=== PATIENT | male | born 1935 | race Caucasian/White ===

== ENCOUNTER 2016-09-21 10:36 | Outpatient (CLI) | payer MEDICARE, OTHER | END 2016-09-21 10:37 | disposition home or self-care (01) | DX: I10 Essential (primary) hypertension (principal); E78.5 Hyperlipidemia, unspecified ==

== ENCOUNTER 2016-09-25 08:00 | Outpatient (CLI) | payer MEDICARE, OTHER | END 2016-09-25 08:01 | disposition home or self-care (01) | DX: D75.89 Other specified diseases of blood and blood-forming organs (principal); R27.0 Ataxia, unspecified ==

== ENCOUNTER 2017-11-29 09:40 | Outpatient (CLI) | payer MEDICARE, OTHER ==
[2017-11-29 13:15] LABS: BILIRUBIN,URINE NEGATIVE (NEGATIVE); GLUCOSE, URINE (UA) NEGATIVE (NEGATIVE); KETONES,URINE (UA) NEGATIVE (NEGATIVE); LEUKOCYTE ESTERASE, URINE NEGATIVE (NEGATIVE); NITRITE,URINE POSITIVE (NEGATIVE); OCCULT BLOOD,URINE LARGE (NEGATIVE); PH,URINE 5.5 PH (5.0-7.5); PROTEIN,URINE 30 mg/dL (NEGATIVE); UROBILINOGEN,URINE 0.2 (NORMAL) E.U./dL (NORMAL)
[2017-11-29 13:38] LABS: CLARITY,URINE HAZY (CLEAR)
[2017-11-29 13:39] LABS: BACTERIA,URINE Many /HPF (None Seen); RBC,URINE TNTC /HPF (0-5); SQUAMOUS EPITHELIAL CELL,UR RARE Squamous (<= Few)
== END 2017-11-29 09:41 | disposition home or self-care (01) ==
LOC: LAB.R 09:40
PROVIDERS: ATTEND Family Medicine
DX: R10.32 Left lower quadrant pain (principal)
CPT/HCPCS: 81001; 87086

== ENCOUNTER 2017-11-29 11:08 | Outpatient (CLI) | payer MEDICARE, OTHER ==
[2017-11-29 11:36] LABS: BASOPHILS # (AUTO) 0.1 10^3/uL (0.0-0.1); BASOPHILS % (AUTO) 0.5 %; EOSINOPHILS % (AUTO) 0.2 %; HGB - HEMOGLOBIN 16.9 g/dL (14.0-18.0); LYMPHOCYTES # (AUTO) 1.1 10^3/uL (1.5-3.5); LYMPHOCYTES % (AUTO) 7.7 %; MEAN CORPUSCULAR HEMOGLOBIN 33.9 pg (27.0-31.0); MEAN CORPUSCULAR HGB CONC 34.3 g/dL (32.0-36.0); MEAN CORPUSCULAR VOLUME 98.7 fL (80.0-94.0); MEAN PLATELET VOLUME 7.4 fL (7.4-11.4); MONOCYTES # (AUTO) 0.7 10^3/uL (0.0-1.0); MONOCYTES % (AUTO) 4.6 %; NEUTROPHILS # (AUTO) 12.6 10^3/uL (1.5-6.6); PLT - PLATELET COUNT 147 10^3/uL (130-450); RED BLOOD COUNT 4.97 10^6/uL (4.70-6.10); RED CELL DISTRIBUTION WIDTH 13.9 % (12.0-15.0); WHITE BLOOD COUNT 14.5 x10^3/uL (4.8-10.8)
[2017-11-29 11:47] LABS: ALBUMIN 4.6 g/dL (3.2-5.5); ALBUMIN/GLOBULIN RATIO 1.4 (1.0-2.2); BILIRUBIN,TOTAL 1.3 mg/dL (0.2-1.0); CALCIUM 10.8 mg/dL (8.5-10.3); CREATININE 1.7 mg/dL (0.6-1.2); TOTAL PROTEIN 7.8 g/dL (6.7-8.2)
[2017-11-29] MEDS ORDERED: IOPAMIDOL-300 100 ML VIAL ONE (13:12)
[2017-11-29] MEDS ORDERED: IOPAMIDOL-300 100 ML VIAL IVP ONE (14:27)
--- NOTE | 2017-11-29 15:20 | CT Report ---
CT IVP: 11/29/2017 CLINICAL INDICATION: Left-sided pain, hematuria. TECHNIQUE: Axial CT images of the abdomen and pelvis were obtained prior to and following 50 mL of Isovue 300 intravenously, using split bolus technique. No previous CT is available for comparison. FINDINGS: Limited evaluation of the lung bases demonstrates atelectasis. ABDOMEN: The liver demonstrates diffuse decrease in attenuation, compatible with fatty infiltration. Multiple splenic granulomas are incidentally noted. Bilateral cortical cysts are present, left greater than right, and there is left perinephric stranding. An 1 mm calculus is noted in the right renal collecting system. Following administration of contrast, there is symmetric uptake and excretion from the kidneys. No hydroureter is present. The pancreas and adrenal glands appear unremarkable. The gallbladder is not dilated. No bowel dilatation, free gas, or free fluid is present. No abdominal adenopathy is seen. PELVIS: There is a 3 mm calculus in the urinary bladder. No pelvic adenopathy or free fluid is present. The appendix is seen in the right lower quadrant, and is normal in caliber. Osseous structures demonstrate degenerative changes IMPRESSION: A 3 MM CALCULUS IN THE URINARY BLADDER, WITH LEFT RENAL PERINEPHRIC STRANDING, COMPATIBLE WITH RECENT PASSAGE OF A LEFT RENAL CALCULUS. NO SOLID RENAL OR COLLECTING SYSTEM MASS IS IDENTIFIED. In accordance with CT protocol optimization, one or more of the following dose reduction techniques were utilized for this exam: automated exposure control, adjustment of mA and/or KV based on patient size, or use of iterative reconstructive technique. TD: 11/29/2017 15:20 MTDD
== END 2017-11-29 11:09 | disposition home or self-care (01) ==
LOC: LAB 11:08 → DI 11:09
PROVIDERS: ATTEND Family Medicine
DX: R10.32 Left lower quadrant pain (principal); R31.9 Hematuria, unspecified; N21.0 Calculus in bladder
CPT/HCPCS: 36415; 74178; 80053; 81001; 85025; 87086; Q9967

== ENCOUNTER 2017-12-03 20:21 | Outpatient (CLI) | payer MEDICARE, OTHER ==
[2017-12-03 19:02] LABS: HGB - HEMOGLOBIN 15.3 g/dL (14.0-18.0); LYMPHOCYTES % (AUTO) 19.1 %; MEAN CORPUSCULAR HEMOGLOBIN 33.6 pg (27.0-31.0); MEAN CORPUSCULAR HGB CONC 33.6 g/dL (32.0-36.0); MEAN CORPUSCULAR VOLUME 100.1 fL (80.0-94.0); MEAN PLATELET VOLUME 8.6 fL (7.4-11.4); NEUTROPHILS % (AUTO) 69.9 %; PLT - PLATELET COUNT 141 10^3/uL (130-450); RED BLOOD COUNT 4.54 10^6/uL (4.70-6.10); RED CELL DISTRIBUTION WIDTH 13.8 % (12.0-15.0); WHITE BLOOD COUNT 10.1 x10^3/uL (4.8-10.8)
[2017-12-03 19:25] LABS: HB2 TOTAL 16.8 g/dL; HEMOGLOBIN A1C 0.96 g/dL; HEMOGLOBIN A1C % 7.4 % (4.6-6.2)
[2017-12-03 19:26] LABS: ALBUMIN/GLOBULIN RATIO 1.2 (1.0-2.2); BILIRUBIN,TOTAL 0.9 mg/dL (0.2-1.0); CALCIUM 10.8 mg/dL (8.5-10.3); CREATININE 1.9 mg/dL (0.6-1.2); TOTAL PROTEIN 7.4 g/dL (6.7-8.2)
[2017-12-03 19:51] LABS: ABNORMAL LYMPHS % (MANUAL) 0 %
[2017-12-03 20:47] LABS: BAND NEUTROPHILS % (MANUAL) 3 %; DIFFERENTIAL COMMENT MANUAL DIFFERENTIAL; EOSINOPHILS # (MANUAL) 0.2 10^3/uL (0-0.7); LYMPHOCYTES # (MANUAL) 1.8 10^3/uL (1.5-3.5); LYMPHOCYTES % (MANUAL) 17 %; MONOCYTES # (MANUAL) 0.4 10^3/uL (0.0-1.0); NEUTROPHILS # (MANUAL) 7.7 10^3/uL (1.5-6.6); NEUTROPHILS % (MANUAL) 73 %; PLATELET ESTIMATE, MANUAL NORMAL (130-450,000) (NORMAL); PLATELET MORPHOLOGY NORMAL APPEARANCE (NORMAL); RBC MORPHOLOGY (MULTIPLE) NORMAL APPEARANCE (NORMAL)
== END 2017-12-03 20:22 | disposition home or self-care (01) ==
LOC: LAB.WCP 20:21
PROVIDERS: ATTEND Family Medicine
DX: D72.829 Elevated white blood cell count, unspecified (principal); R73.9 Hyperglycemia, unspecified; R94.5 Abnormal results of liver function studies
CPT/HCPCS: 36415; 80053; 83036; 85025

== ENCOUNTER 2018-08-21 07:50 | Outpatient (CLI) | payer MEDICARE ==
[2018-08-21 13:23] LABS: BASOPHILS # (AUTO) 0.1 10^3/uL (0.0-0.1); BASOPHILS % (AUTO) 0.7 %; EOSINOPHILS # (AUTO) 1.2 10^3/uL (0.0-0.7); EOSINOPHILS % (AUTO) 11.7 %; LYMPHOCYTES # (AUTO) 2.8 10^3/uL (1.5-3.5); LYMPHOCYTES % (AUTO) 27.2 %; MEAN CORPUSCULAR HGB CONC 35.6 g/dL (32.0-36.0); MEAN CORPUSCULAR VOLUME 98.2 fL (80.0-94.0); MEAN PLATELET VOLUME 8.4 fL (7.4-11.4); MONOCYTES # (AUTO) 0.6 10^3/uL (0.0-1.0); MONOCYTES % (AUTO) 5.6 %; NEUTROPHILS # (AUTO) 5.6 10^3/uL (1.5-6.6); NEUTROPHILS % (AUTO) 54.8 %; PLT - PLATELET COUNT 146 10^3/uL (130-450); RED BLOOD COUNT 4.57 10^6/uL (4.70-6.10); RED CELL DISTRIBUTION WIDTH 13.3 % (12.0-15.0); WHITE BLOOD COUNT 10.1 x10^3/uL (4.8-10.8)
[2018-08-21 13:41] LABS: ALBUMIN 4.2 g/dL (3.2-5.5); ALBUMIN/GLOBULIN RATIO 1.3 (1.0-2.2); ALKALINE PHOSPHATASE 89 IU/L (42-121); ALT ALANINE AMINOTRANSFERASE 88 IU/L (10-60); AST ASPARTATE AMINOTRANSFERASE 64 IU/L (10-42); BILIRUBIN,TOTAL 1.4 mg/dL (0.2-1.0); BUN - BLOOD UREA NITROGEN 24 mg/dL (6-20); CALCIUM 10.7 mg/dL (8.5-10.3); CARBON DIOXIDE - CO2 25 mmol/L (21-32); CHLORIDE 98 mmol/L (101-111); CHOL/HDL RATIO 5.3 (<5.0); CHOLESTEROL 144 mg/dL; CREATININE 1.5 mg/dL (0.6-1.2); GFR - MDRD 45 (>89); GLUCOSE 331 mg/dL (70-100); HDL CHOLESTEROL 27 mg/dL; SODIUM 133 mmol/L (135-145); TOTAL PROTEIN 7.4 g/dL (6.7-8.2)
[2018-08-21 13:49] LABS: HEMOGLOBIN A1C 1.55 g/dL; HEMOGLOBIN A1C % 10.5 % (4.6-6.2)
[2018-08-21 14:02] LABS: LDL CHOLESTEROL,DIRECT 68 mg/dL; LDLD/HDL RATIO 2.5 (<3.6)
== END 2018-08-21 23:59 ==
LOC: LAB.WCP 07:50
PROVIDERS: ATTEND Family Medicine
DX: R73.03 Prediabetes (principal); D75.89 Other specified diseases of blood and blood-forming organs; E78.5 Hyperlipidemia, unspecified; I10 Essential (primary) hypertension
CPT/HCPCS: 36415; 80053; 80061; 82043; 83036; 83721; 84443; 84550; 85025

== ENCOUNTER 2018-11-07 12:00 | Outpatient (CLI) | payer MEDICARE, OTHER ==
[2018-11-07 19:18] LABS: ALBUMIN 4.3 g/dL (3.2-5.5); ALBUMIN/GLOBULIN RATIO 1.3 (1.0-2.2); CALCIUM 10.4 mg/dL (8.5-10.3); CREATININE 1.3 mg/dL (0.6-1.2); TOTAL PROTEIN 7.5 g/dL (6.7-8.2)
[2018-11-07 19:51] LABS: HB2 TOTAL 16.9 g/dL; HEMOGLOBIN A1C 0.84 g/dL; HEMOGLOBIN A1C % 6.7 % (4.6-6.2)
== END 2018-11-07 12:01 | disposition home or self-care (01) ==
LOC: LAB.WCP 12:00
PROVIDERS: ATTEND Family Medicine
DX: E11.9 Type 2 diabetes mellitus without complications (principal)
CPT/HCPCS: 36415; 80053; 83036

== ENCOUNTER 2019-08-05 08:00 | Outpatient (CLI) | payer MEDICARE, OTHER ==
[2019-08-05 13:04] LABS: BASOPHILS % (AUTO) 0.5 %; EOSINOPHILS # (AUTO) 0.2 10^3/uL (0.0-0.7); EOSINOPHILS % (AUTO) 3.1 %; LYMPHOCYTES # (AUTO) 2.4 10^3/uL (1.5-3.5); LYMPHOCYTES % (AUTO) 32.8 %; MEAN CORPUSCULAR HEMOGLOBIN 32.9 pg (27.0-31.0); MEAN CORPUSCULAR HGB CONC 33.2 g/dL (32.0-36.0); MONOCYTES # (AUTO) 0.5 10^3/uL (0.0-1.0); MONOCYTES % (AUTO) 6.8 %; NEUTROPHILS # (AUTO) 4.1 10^3/uL (1.5-6.6); NEUTROPHILS % (AUTO) 55.6 %; PLT - PLATELET COUNT 144 10^3/uL (130-450); RED BLOOD COUNT 4.87 10^6/uL (4.70-6.10); RED CELL DISTRIBUTION WIDTH 13.7 % (12.0-15.0); WHITE BLOOD COUNT 7.3 x10^3/uL (4.8-10.8)
[2019-08-05 14:02] LABS: ALBUMIN 4.4 g/dL (3.2-5.5); ALBUMIN/GLOBULIN RATIO 1.4 (1.0-2.2); ALKALINE PHOSPHATASE 45 IU/L (42-121); ALT ALANINE AMINOTRANSFERASE 64 IU/L (10-60); AST ASPARTATE AMINOTRANSFERASE 36 IU/L (10-42); BILIRUBIN,TOTAL 0.9 mg/dL (0.2-1.0); BUN - BLOOD UREA NITROGEN 22 mg/dL (6-20); CALCIUM 10.1 mg/dL (8.5-10.3); CARBON DIOXIDE - CO2 28 mmol/L (21-32); CHLORIDE 103 mmol/L (101-111); CHOL/HDL RATIO 5.4 (<5.0); CHOLESTEROL 161 mg/dL; CREATININE 1.4 mg/dL (0.6-1.2); GFR - MDRD 49 (>89); GLUCOSE 182 mg/dL (70-100); HDL CHOLESTEROL 30 mg/dL; LDL CHOLESTEROL,CALCULATED 54 mg/dL; LDL/HDL RATIO 1.8 (<3.6); SODIUM 140 mmol/L (135-145); TOTAL PROTEIN 7.6 g/dL (6.7-8.2); VLDL CHOLESTEROL 77 mg/dL
[2019-08-05 14:35] LABS: HB2 TOTAL 16.5 g/dL; HEMOGLOBIN A1C 0.85 g/dL; HEMOGLOBIN A1C % 6.9 % (4.6-6.2)
[2019-08-05 14:54] LABS: FREE T4 (FREE THYROXINE) 1.05 ng/dL (0.58-1.64)
[2019-08-05 19:01] LABS: CREATININE,URINE 138.2 mg/dL; MICROALBUM/CREATININE RATIO,UR 3.6 ug/mg (<30.0); MICROALBUMIN,URINE 0.5 mg/dL (0-300.0)
== END 2019-08-05 23:59 | disposition home or self-care (01) ==
LOC: LAB.WCP 08:00
PROVIDERS: ATTEND Family Medicine
DX: E11.65 Type 2 diabetes mellitus with hyperglycemia (principal); R94.5 Abnormal results of liver function studies; D72.829 Elevated white blood cell count, unspecified; I10 Essential (primary) hypertension; E78.5 Hyperlipidemia, unspecified; D64.9 Anemia, unspecified; R11.2 Nausea with vomiting, unspecified
CPT/HCPCS: 36415; 80053; 80061; 82043; 82570; 83036; 83721; 84439; 84443; 85025

== ENCOUNTER 2019-11-20 07:57 | Outpatient (CLI) | payer MEDICARE, OTHER ==
[2019-11-20 12:23] LABS: BASOPHILS # (AUTO) 0.1 10^3/uL (0.0-0.1); BASOPHILS % (AUTO) 0.8 %; EOSINOPHILS # (AUTO) 0.2 10^3/uL (0.0-0.7); EOSINOPHILS % (AUTO) 3.5 %; HGB - HEMOGLOBIN 16.5 g/dL (14.0-18.0); LYMPHOCYTES # (AUTO) 1.9 10^3/uL (1.5-3.5); LYMPHOCYTES % (AUTO) 29.7 %; MEAN CORPUSCULAR HEMOGLOBIN 34.1 pg (27.0-31.0); MEAN CORPUSCULAR HGB CONC 34.4 g/dL (32.0-36.0); MONOCYTES # (AUTO) 0.4 10^3/uL (0.0-1.0); MONOCYTES % (AUTO) 6.6 %; NEUTROPHILS # (AUTO) 3.7 10^3/uL (1.5-6.6); NEUTROPHILS % (AUTO) 58.5 %; PLT - PLATELET COUNT 144 10^3/uL (130-450); RED BLOOD COUNT 4.84 10^6/uL (4.70-6.10); RED CELL DISTRIBUTION WIDTH 13.5 % (12.0-15.0); WHITE BLOOD COUNT 6.4 x10^3/uL (4.8-10.8)
[2019-11-20 12:56] LABS: ALBUMIN 4.2 g/dL (3.2-5.5); ALBUMIN/GLOBULIN RATIO 1.3 (1.0-2.2); CALCIUM 10.2 mg/dL (8.5-10.3); CREATININE 1.4 mg/dL (0.6-1.2); TOTAL PROTEIN 7.4 g/dL (6.7-8.2)
[2019-11-20 13:18] LABS: HB2 TOTAL 16.9 g/dL; HEMOGLOBIN A1C 0.84 g/dL; HEMOGLOBIN A1C % 6.7 % (4.6-6.2)
== END 2019-11-20 23:59 | disposition home or self-care (01) ==
LOC: LAB.WCP 07:57
PROVIDERS: ATTEND Family Medicine
DX: E11.9 Type 2 diabetes mellitus without complications (principal); R94.5 Abnormal results of liver function studies; D72.829 Elevated white blood cell count, unspecified
CPT/HCPCS: 36415; 80053; 83036; 84443; 85025

== ENCOUNTER 2019-11-24 09:08 | Outpatient (CLI) | payer MEDICARE, OTHER ==
[2019-11-25 10:35] LABS: HEPATITIS B SURFACE ANTIGEN NON-REACTIVE (NON-REACTIVE); HEPATITIS C ANTIBODY NON-REACTIVE (NON-REACTIVE)
== END 2019-11-24 23:59 | disposition home or self-care (01) ==
LOC: LAB.WCP 09:08
PROVIDERS: ATTEND Family Medicine
DX: R74.8 Abnormal levels of other serum enzymes (principal)
CPT/HCPCS: 36415; 86708; 86803; 87340

== ENCOUNTER 2020-03-25 09:50 | Outpatient (CLI) | payer MEDICARE, OTHER ==
[2020-03-25 11:59] LABS: ALBUMIN 4.3 g/dL (3.2-5.5); ALBUMIN/GLOBULIN RATIO 1.4 (1.0-2.2); BILIRUBIN,TOTAL 1.2 mg/dL (0.2-1.0); CALCIUM 10.5 mg/dL (8.5-10.3); CREATININE 1.5 mg/dL (0.6-1.2); TOTAL PROTEIN 7.4 g/dL (6.7-8.2)
[2020-03-25 12:06] LABS: CREATININE,URINE 178.8 mg/dL; MICROALBUM/CREATININE RATIO,UR 3.4 ug/mg (<30.0); MICROALBUMIN,URINE 0.6 mg/dL (0-300.0)
[2020-03-25 12:14] LABS: HEMOGLOBIN A1C 0.81 g/dL; HEMOGLOBIN A1C % 6.8 % (4.6-6.2)
== END 2020-03-25 23:59 | disposition home or self-care (01) ==
LOC: LAB.WCP 09:50
PROVIDERS: ATTEND Family Medicine
DX: E11.9 Type 2 diabetes mellitus without complications (principal); R94.5 Abnormal results of liver function studies
CPT/HCPCS: 36415; 80053; 82043; 82570; 83036

== ENCOUNTER 2020-05-05 06:28 | Day surgery (SDC) | payer MEDICARE, OTHER ==
[2020-05-05] MEDS ORDERED: LIDO GARGLE 30 ML BOTTLE ONE (06:39)
[2020-05-05] MEDS ORDERED: LACTATED RINGERS 1,000 ML IV ONE ×2 (07:01→08:24)
[2020-05-05] MEDS ORDERED: fentaNYL 100 MCG/2 ML VIAL IVP ONE (08:01)
[2020-05-05] MEDS ORDERED: MIDAZOLAM 2 MG/2 ML VIAL IVP ONE (08:01)
[2020-05-05] MEDS ORDERED: BENZOCAINE/TETRACAINE/BUTAMBEN 20 GM TOP ONE (08:11)
[2020-05-05] MEDS ORDERED: LIDO GARGLE 30 ML BOTTLE TOP ONE (08:11)
[2020-05-05 08:44] VITALS: BP 107/65
== END 2020-05-05 06:29 | disposition home or self-care (01) ==
LOC: SDS 06:28
PROVIDERS: ATTEND Surgery
PROC: 0DB48ZX Excision of Esophagogastric Junction, Via Natural or Artificial Opening Endoscopic, Diagnostic (ICD-10-PCS; principal; 2020-05-05 07:30)
DX: K22.70 Barrett's esophagus without dysplasia (principal); K29.70 Gastritis, unspecified, without bleeding; E11.9 Type 2 diabetes mellitus without complications; I10 Essential (primary) hypertension; E78.5 Hyperlipidemia, unspecified; N40.1 Benign prostatic hyperplasia with lower urinary tract symptoms; M10.9 Gout, unspecified; Z79.82 Long term (current) use of aspirin; Z79.899 Other long term (current) drug therapy; Z80.0 Family history of malignant neoplasm of digestive organs
CPT/HCPCS: 43239; A9270; J7120

== ENCOUNTER 2020-05-22 19:13 | Observation (INO) | payer MEDICARE, OTHER ==
[2020-05-22] MEDS ORDERED: SODIUM CHLORIDE 0.9% 1,000 ML IV STA ×2 (19:20→20:57)
[2020-05-22 19:50] LABS: BASOPHILS % (AUTO) 0.3 %; EOSINOPHILS # (AUTO) 0.1 10^3/uL (0.0-0.7); EOSINOPHILS % (AUTO) 0.9 %; HGB - HEMOGLOBIN 15.3 g/dL (14.0-18.0); LYMPHOCYTES # (AUTO) 2.1 10^3/uL (1.5-3.5); LYMPHOCYTES % (AUTO) 15.6 %; MEAN CORPUSCULAR HEMOGLOBIN 32.8 pg (27.0-31.0); MEAN CORPUSCULAR HGB CONC 32.8 g/dL (32.0-36.0); MEAN CORPUSCULAR VOLUME 100.2 fL (80.0-94.0); MEAN PLATELET VOLUME 10.3 fL (7.4-11.4); MONOCYTES # (AUTO) 1.1 10^3/uL (0.0-1.0); NEUTROPHILS # (AUTO) 9.9 10^3/uL (1.5-6.6); NEUTROPHILS % (AUTO) 74.4 %; PLT - PLATELET COUNT 205 10^3/uL (130-450); RED BLOOD COUNT 4.66 10^6/uL (4.70-6.10); RED CELL DISTRIBUTION WIDTH 14.5 % (12.0-15.0); WHITE BLOOD COUNT 13.2 x10^3/uL (4.8-10.8)
--- NOTE | 2020-05-22 19:52 | ED Physician Documentation ---
PD HPI ABD PAIN - Stated complaint Stated Complaint: NAUSEA,WEAKNESS - Chief complaint Chief Complaint: Neuro - History obtained from History obtained from: Patient, Family () - Additional information Additional information: This is an 85-year-old gentleman has been dealing with nausea, poor appetite, generalized weakness for the last 3 weeks or so. In that time he has lost about 10 or 15 pounds. 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 He has had an appendectomy in the past. He has also had melanoma of the right retina. He denies any abdominal or other pain. They have been trying some medications without much relief including mirtazapine, Reglan, laxatives. At the outset he did have a fecal impaction but his resolved that with an enema. Review of Systems Ten Systems: 10 systems reviewed and negative Constitutional: reports: Fatigue, Weight Loss Cardiac: denies: Chest pain / pressure, Palpitations Respiratory: denies: Dyspnea, Cough GI: reports: Nausea, Constipation, Diarrhea. denies: Abdominal Pain, Vomiting PD PAST MEDICAL HISTORY - Past Medical History Cardiovascular: None Respiratory: None Endocrine/Autoimmune: Type 2 diabetes GI: Chronic constipation, Other : Benign prostate hypertrophy HEENT: Chronic vision loss Psych: None Musculoskeletal: Gout Derm: None - Past Surgical History Past Surgical History: Yes Ortho: Other HEENT: Tonsil/Adenoidectomy - Present Medications Home Medications: Ambulatory Orders Medication Instructions Recorded Confirmed Cholecalciferol (Vitamin D3) 2,000 unit PO DAILY 09/10/18 05/22/20 [Vitamin D] Finasteride 1 mg PO DAILY 09/10/18 05/22/20 Lovastatin 40 mg PO DAILY 09/10/18 05/22/20 Pen Needle, Diabetic [Pen [place]] 1 each MC DAILY 09/10/18 05/22/20 Tamsulosin [Flomax] 0.4 mg PO BID 09/10/18 05/22/20 Esomeprazole Magnesium [Nexium] 20 mg PO DAILY 05/22/20 05/22/20 Metoclopramide HCl 5 mg PO TID 05/22/20 05/22/20 Mirtazapine 15 mg PO QPM 05/22/20 05/22/20 - Allergies Allergies/Adverse Reactions: Allergies Allergy/AdvReac Type Severity Reaction Status Date / Time No Known Drug Allergies Allergy Verified 05/22/20 19:47 - Social History Does the pt smoke?: No Smoking Status: Never smoker Does the pt drink ETOH?: Yes Does the pt have substance abuse?: No PD ED PE NORMAL - Vitals Vital signs reviewed: Yes - General General: Alert and oriented X 3, No acute distress - HEENT HEENT: PERRL, EOMI - Neck Neck: Supple, no meningeal sign, No bony TTP - Cardiac Cardiac: RRR (Occasional extrasystoles) - Respiratory Respiratory: No respiratory distress, Clear bilaterally - Abdomen Abdomen: Normal bowel sounds, Soft, Non tender - Back Back: No CVA TTP, No spinal TTP - Derm Derm: Normal color, Warm and dry - Extremities Extremities: No edema, No calf tenderness / cord - Neuro Neuro: Alert and oriented X 3, Normal speech Results - Vitals Vitals: Vital Signs - 24 hr 05/22/20 05/22/20 05/22/20 19:34 19:45 19:47 Temperature 36.6 C 98 C H Heart Rate 95 99 93 Respiratory 16 16 16 Rate Blood Pressure 138/78 H 161/96 H 147/86 H O2 Saturation 96 100 96 05/22/20 05/22/20 20:30 21:15 Temperature 36.7 C Heart Rate 79 81 Respiratory 23 21 Rate Blood Pressure 126/67 119/62 O2 Saturation 95 95 Oxygen O2 Source Room air - Labs Labs: Laboratory Tests 05/22/20 05/22/20 19:45 19:45 WBC 13.2 H RBC 4.66 L Hgb 15.3 Hct 46.7 MCV 100.2 H MCH 32.8 H MCHC 32.8 RDW 14.5 Plt Count 205 MPV 10.3 Neut # (Auto) 9.9 H Lymph # (Auto) 2.1 [place] # (Auto) 1.1 H Eos # (Auto) 0.1 Baso # (Auto) 0.0 Absolute Nucleated RBC 0.00 Nucleated RBC % 0.0 Sodium 135 Potassium 3.5 Chloride 96 L Carbon Dioxide 25 Anion Gap 14.0 H BUN 45 H Creatinine 1.6 H Estimated GFR (MDRD) 41 L Glucose 138 H Calcium 12.3 H* Total Bilirubin 5.2 H AST 162 H ALT 130 H Alkaline Phosphatase 241 H Total Protein 7.8 Albumin 3.8 Globulin 4.0 Albumin/Globulin Ratio 1.0 Lipase 45 PD MEDICAL DECISION MAKING - ED course ED course: 85-year-old gentleman presents with nausea, fatigue, weight loss, malaise. No pain. Lab work is notable for biliary obstruction/hepatic inflammation and significant hypercalcemia. CT from April 09 reviewed by me, to my eye it is more concerning for malignancy than it is for fatty liver, and an ultrasound tonight showed masses but no evidence of visible obstruction. His primary care physician, Dr. Rebolledo was updated in person and will help him make arrangements for definitive tissue diagnosis but I spoke with Dr. Waldron for observation mostly for the hypercalcemia at 9:50 PM. Departure - Departure Disposition: ED Place in Observation Clinical Impression: Liver mass, right lobe, Hypercalcemia Condition: Stable
[2020-05-22 20:12] LABS: ALBUMIN 3.8 g/dL (3.2-5.5); BILIRUBIN,TOTAL 5.2 mg/dL (0.2-1.0); CREATININE 1.6 mg/dL (0.6-1.2); TOTAL PROTEIN 7.8 g/dL (6.7-8.2)
[2020-05-22 20:13] LABS: CALCIUM 12.3 mg/dL (8.5-10.3)
[2020-05-22] MEDS ORDERED: predniSONE 20 MG TABLET PO STA (21:27)
[2020-05-22] MEDS ORDERED: ONDANSETRON 4 MG/2 ML VIAL IVP PRN (21:50)
[2020-05-22] MEDS ORDERED: SODIUM CHLORIDE FLUSH 0.9% 10 ML SYRINGE IVP PRN (21:50)
[2020-05-22] MEDS ORDERED: ACETAMINOPHEN 325 MG TABLET PO PRN (21:50)
[2020-05-22] MEDS ORDERED: ONDANSETRON ODT 4 MG TABLET TL PRN (21:50)
--- NOTE | 2020-05-22 21:55 | HISTORY & PHYSICAL EXAMINATION ---
Chief Complaint - Chief Complaint Chief Complaint: Nausea and weight loss History of Present Illness - Admitted From Admitted From:: Home - History Obtained From Records Reviewed: Yes History obtained from: Patient, ER Physician, Family - History of Present Illness HPI Comment/Other: This is a very pleasant 85-year-old male with a past medical history significant for CKD stage III, type 2 diabetes mellitus, BPH, gout, history of retinal melanoma of the right eye who presents today to the emergency department complaining of nausea and weight loss for the past 3 weeks. He reports over this past period of time, he has had persistent nausea and poor appetite. This has caused him to lose 10 to 15 pounds over the past 3 weeks. He had been start ed on Reglan by his primary care provider for possible gastroparesis and is scheduled for gastric emptying study. 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 He had previously undergone a CT of the abdomen and pelvis on April 09 with IV contrast which noted an abnormal appearing liver with imaging most consistent with fatty liver although neoplasm could not be ruled out. Despite these interventions and work-up, he continued to lose weight and so he was brought to the emergency department today to ensure there is nothing acute that may be causing his symptoms. He states he has felt weaker over the past few weeks as well. He normally ambulates on his own and still quite active. He normally drives and still golfs and fishes but has just felt generally weak more recently. Although his appetite has been poor, he states he has been drinking some liquids although not as much as he should be. He states he is most definitely not drinking 8 glasses of water a day. He had been on hydrochlorothiazide but this was discontinued by his primary care provider a few days ago for concerns of dehydration. The patient does report feeling thirsty. He reports no fevers, chills, dysuria, urgency, frequency. He denies any hematuria or blood in his stool. He believes he may have had a colonoscopy in the past although he cannot recall. He does complain of pleuritic chest pain over the right lower chest wall that is most prominent with exhalation. This has been present for the past 7 to 10 days. Reports no dyspnea or cough. He is a non-smoker. He did report constipation a few weeks ago as well which was relieved by MiraLAX and one enema. He reports daily bowel movement since then which is mostly liquid. He reports a prior history of melanoma of the right eye which was diagnosed and treated over 10 years ago with laser therapy and a patch. He reports no other history of malignancy. He has not noticed any new or abnormal skin lesions recently. In the emergency department, he was found to be afebrile with temperature of 36.6 C. His heart rate was 95. His blood pressure is 138/78. He was not tachypneic and was saturating well on room air. Labs were significant for white count of 13.2. His calcium was elevated at 12.3. His creatinine was 1.6 and BUN was 45. His total bilirubin is also elevated at 5.2. His AST and ALT are elevated at 162 and 130 respectively. Alkaline phosphatase was elevated at 241. He underwent an ultrasound of the right upper quadrant which did not reveal any obvious obstruction per the preliminary report. Given the hypercalcemia, medicine was consulted for admission. I did discuss goals of care with the patient and he would like to be a DNR. 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 He reports no other significant family history to his knowledge. Living arrangement: At home Living Situation: With spouse/s.o. Social History Notes: He lives at home with his . They have lived on [facility] for over 40 years. 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 He reports smoking a few cigarettes here and there over 40 years ago. He does drink occasional alcohol but this intake has decreased over the past few weeks. - POLST Patient has POLST: No Meds/Allgy - Home Medications Home Medications: Ambulatory Orders Medication Instructions Recorded Confirmed Cholecalciferol (Vitamin D3) 2,000 unit PO DAILY 09/10/18 05/22/20 [Vitamin D] Finasteride 1 mg PO DAILY 09/10/18 05/22/20 Lovastatin 40 mg PO DAILY 09/10/18 05/22/20 Pen Needle, Diabetic [Pen [place]] 1 each MC DAILY 09/10/18 05/22/20 Tamsulosin [Flomax] 0.4 mg PO BID 09/10/18 05/22/20 Esomeprazole Magnesium [Nexium] 20 mg PO DAILY 05/22/20 05/22/20 Metoclopramide HCl 5 mg PO TID 05/22/20 05/22/20 Mirtazapine 15 mg PO QPM 05/22/20 05/22/20 - Allergies Allergies/Adverse Reactions: Allergies Allergy/AdvReac Type Severity Reaction Status Date / Time No Known Drug Allergies Allergy Verified 05/22/20 19:47 Review of Systems - Constitutional Constitutional: reports: Weakness, Poor appetite, Weight loss - Ears, Nose & Throat Ears, Nose & Throat: denies: Nasal discharge, Sore throat - Cardiovascular Cariovascular: reports: Chest pain. denies: Palpitations, Edema, Exertional dyspnea, Decr. exercise tolerance - Respiratory Respiratory: denies: Cough, Sputum production, SOB at rest, SOB with exertion - Gastrointestinal Gastrointestinal: reports: Constipation, Change in bowel habits, Nausea, Poor appetite. denies: Abdominal pain, Diarrhea, Black stools, Bloody stools, Vomiting - Genitourinary Genitourinary: denies: Dysuria, Frequency, Urgency, Hematuria - Musculoskeletal Musculoskeletal: denies: Muscle pain, Limited range of motion, Muscle weakness - Integumentary Integumentary: denies: Rash, Lesions - Neurological Neurological: reports: General weakness. denies: Focal weakness - Hematologic/Lymphatic Hematologic/Lymphatic: denies: Bleeding tendencies - All Other Systems All Other Systems: reports: Reviewed and negative Prior Level of Functionality: He is independent with his ADLs. Exam - Vital Signs Reviewed Vital Signs: Yes Vital Signs: Vital Signs x48h Temp Pulse Resp BP Pulse Ox 05/22/20 21:15 36.7 C 81 21 119/62 95 05/22/20 20:30 79 23 126/67 95 05/22/20 19:47 98 C H 93 16 147/86 H 96 05/22/20 19:45 99 16 161/96 H 100 05/22/20 19:34 36.6 C 95 16 138/78 H 96 - Physical Exam General Appearance: positive: No acute distress, Alert Eyes Bilateral: positive: Normal inspection, Conjunctivae nml ENT: positive: Dry mucous membranes. negative: No signs of dehydration Neck: positive: Nml inspection Respiratory: positive: No respiratory distress, Other (Diminished in bases.). negative: Wheezes, Rales Cardiovascular: positive: Regular rate & rhythm, No murmur. negative: Extrasystoles, Tachycardia, Bradycardia, Systolic murmur Abdomen: positive: Non-tender, Nml bowel sounds, No distention, Hepatomegaly. negative: Tenderness, Guarding, Rebound, Splenomegaly Skin: positive: No rash, Warm, Dry Extremities: positive: Full ROM, No pedal edema Neurologic/Psychiatric: positive: Oriented x3, Motor nml. negative: Disoriented to person, Disoriented to place, Disoriented to time Conclusion/Plan - Problem List (1) Hypercalcemia Conclusion/Plan: Suspect this is likely multifactorial. His calcium is elevated at 12.3 and baseline appears to vary from 10-11. He fortunately, does not appear to be symptomatic. Suspect this may have been due to the hydrochlorothiazide he had been on as well as dehydration. This may also be to the potential underlying malignancy. His hydrochlorothiazide had been stopped a few days ago we will continue to hold it. He received 1 L of normal saline in the emergency department we will give him a liter of saline and continue him on maintenance IV fluids at 175 mL an hour. I do not feel that he needs a bisphosphonate at this time. We will check a PTH and PTH related protein. We will also check a vitamin D level. He will be placed in observation for treatment of the hypercalcemia but I suspect he will likely be able to be discharged tomorrow after IV hydration and continuing to hold the hydrochlorothiazide as long as his calcium is improving. (2) Liver mass, right lobe Conclusion/Plan: This is concerning for malignancy. His LFTs are elevated but prelim ultrasound report does not show evidence of obstruction. I suspect this is the likely cause of his nausea, poor appetite, weight loss. We will obtain MRI of the abdomen with and without contrast for further evaluation tomorrow. Based off these findings, he would likely need outpatient follow-up for potential biopsy if this is truly concerning for malignancy. (3) Weight loss, abnormal Conclusion/Plan: He presents with poor appetite, weight loss, nausea. Suspect this is likely due to underlying suspected malignancy although this may also be due to hypercalcemia although this is felt less likely. He does appear dehydrated and so we will continue him on IV fluids. We will continue the Remeron that had been initiated on outpatient basis for his poor appetite. Start him on Ensure supplementation 3 times daily. Will consider nutrition consult. (4) Abnormal LFTs Conclusion/Plan: His LFTs are elevated and suspect this is likely due to the mass rather than fatty infiltration although does have a history of mildly elevated LFTs but this is definitely elevated compared to baseline. We will await official report of the right upper quadrant ultrasound but will tentatively plan for MRI of the liver for further evaluation given the concern for malignancy. We will continue to trend his liver function test. Check INR. (5) Pleuritic chest pain Conclusion/Plan: He reports right-sided pleuritic chest pain that is worse with exhalation. Suspect this may be due to the underlying mass. We will obtain an EKG and check a troponin. We will also order a chest x-ray for further evaluation. (6) CKD (chronic kidney disease), stage III Conclusion/Plan: His renal function is stable and at baseline. We will continue to monitor his renal function during this hospitalization. (7) Galvez esophagus Conclusion/Plan: This was evident on EGD last month. There is no evidence of dysplasia. We will continue him on oral Protonix during this hospitalization. Qualifiers: Galvez's esophagus type: without dysplasia Qualified Code(s): K22.70 - Galvez's esophagus without dysplasia (8) History of malignant melanoma of eye Conclusion/Plan: He reports a history of melanoma of the right eye that was treated over 10 years ago with laser therapy and a patch. (9) Type 2 diabetes mellitus Conclusion/Plan: He had previously been on Lantus but this was discontinued due to his weight loss and poor appetite. His last A1c was 6.8%. We will start him on a carb controlled diet although he will be made n.p.o. at midnight for the MRI tomorrow. We will place him on sliding scale and blood glucose checks. (10) BPH (benign prostatic hyperplasia) Conclusion/Plan: We will continue his home medications. - Lab Results Lab results reviewed: Yes Fish Bones: 05/22/20 19:45 05/22/20 19:45 - Diagnostic Imaging Results Diagnostic Imaging Results: positive: Final report reviewed Core Measures - Anticipated LOS I expect patient to be DC'd or transferred within 96 hours.: Yes - Issues Hospital Issues and Management Plan: 85-year-old male who presents with nausea and weight loss found to have hyperc alcemia and a likely mass of the liver. We will place in observation for IV fluids and MRI of the mass. - DVT/VTE - Prophylaxis VTE/DVT Device ordered at admit?: Yes VTE/DVT Prophylaxis med ordered at admit?: Yes
[2020-05-22] MEDS ORDERED: MIRTAZAPINE 15 MG TABLET PO SCH (22:39)
[2020-05-22] MEDS ORDERED: SODIUM CHLORIDE 0.9% 1,000 ML IV ONE (22:39)
[2020-05-23] MEDS: SODIUM CHLORIDE FLUSH 0.9% 10 ML SYRINGE IVP SCH ×2 (00:25→09:21)
[2020-05-23] MEDS: INSULIN REGULAR HUMAN 300 UNIT/3 ML VIAL SUBQ SCH ×3 (00:25→12:15)
[2020-05-23] MEDS: SODIUM CHLORIDE 0.9% 1,000 ML IV SCH ×2 (01:04→06:52)
[2020-05-23 03:28] LABS: GLUCOSE, URINE (UA) NEGATIVE (NEGATIVE); KETONES,URINE (UA) TRACE mg/dL (NEGATIVE); LEUKOCYTE ESTERASE, URINE NEGATIVE (NEGATIVE); NITRITE,URINE NEGATIVE (NEGATIVE); OCCULT BLOOD,URINE NEGATIVE (NEGATIVE); PH,URINE 5.5 PH (5.0-7.5); PROTEIN,URINE NEGATIVE (NEGATIVE); UROBILINOGEN,URINE 1 (NORMAL) E.U./dL (NORMAL)
[2020-05-23 03:31] LABS: BILIRUBIN,URINE NEGATIVE (NEGATIVE); CLARITY,URINE CLEAR (CLEAR); ICTOTEST,URINE NEGATIVE
[2020-05-23 03:34] LABS: BACTERIA,URINE Rare /HPF (None Seen); CASTS, URINE 3-5 Hyaline Casts /LPF; RBC,URINE None Seen /HPF (0-5); SQUAMOUS EPITHELIAL CELL,UR NONE SEEN (<= Few)
[2020-05-23 05:42] LABS: BASOPHILS % (AUTO) 0.4 %; EOSINOPHILS # (AUTO) 0.2 10^3/uL (0.0-0.7); EOSINOPHILS % (AUTO) 1.7 %; HGB - HEMOGLOBIN 12.1 g/dL (14.0-18.0); LYMPHOCYTES # (AUTO) 1.6 10^3/uL (1.5-3.5); LYMPHOCYTES % (AUTO) 16.6 %; MEAN CORPUSCULAR HEMOGLOBIN 33.2 pg (27.0-31.0); MEAN CORPUSCULAR HGB CONC 33.1 g/dL (32.0-36.0); MEAN CORPUSCULAR VOLUME 100.3 fL (80.0-94.0); MONOCYTES # (AUTO) 0.8 10^3/uL (0.0-1.0); MONOCYTES % (AUTO) 8.3 %; NEUTROPHILS # (AUTO) 6.7 10^3/uL (1.5-6.6); NEUTROPHILS % (AUTO) 71.9 %; PLT - PLATELET COUNT 159 10^3/uL (130-450); RED BLOOD COUNT 3.65 10^6/uL (4.70-6.10); RED CELL DISTRIBUTION WIDTH 14.6 % (12.0-15.0); WHITE BLOOD COUNT 9.4 x10^3/uL (4.8-10.8)
[2020-05-23 05:49] LABS: INR 1.4 (0.8-1.2); PT - PROTHROMBIN TIME 15.1 secs (9.9-12.6)
[2020-05-23 05:59] LABS: ALBUMIN 2.8 g/dL (3.2-5.5); BILIRUBIN,DIRECT 2.8 mg/dL (0.1-0.5); BILIRUBIN,TOTAL 4.7 mg/dL (0.2-1.0); CALCIUM 10.7 mg/dL (8.5-10.3); CREATININE 1.1 mg/dL (0.6-1.2); MAGNESIUM 1.7 mg/dL (1.7-2.8); PHOSPHORUS 2.1 mg/dL (2.5-4.6)
[2020-05-23] MEDS ORDERED: PANTOPRAZOLE 40 MG TABLET PO SCH (07:00)
[2020-05-23] MEDS ORDERED: POTASSIUM CHLORIDE 20 MEQ TABLET PO SCH (07:15)
--- NOTE | 2020-05-23 07:55 | Discharge Plan ---
Discharge Plan Problem Reviewed?: Yes Disposition: Home, Self Care Condition: Fair Prescriptions: Ondansetron Odt [Zofran Odt] 4 mg TL Q6HR PRN #10 tablet PRN Reason: Nausea / Vomiting oxyCODONE ER [OxyCONTIN] 10 mg PO Q12H PRN #8 tablet PRN Reason: Pain >8 Diet: Soft (You should eat and easy to digest diet, low in fiber. Stay well- hydrated by drinking fluids that contain electrolytes, such as Gatorade and broths. Advance your diet as tolerated.) Activity Restrictions: Activity as Tolerated Shower Restrictions: No Driving Restrictions: No Health Concerns: You were hospitalized briefly for IV hydration, correction of high serum calcium level, and to manage your nausea and for imaging of your abdomen. Continue with your present medications, except stop vitamin D. A new prescription for nausea and for pain were electronically sent to your [facility] pharmacy. I spoke to your primary care provider, Dr. Rebolledo. He knows the final report of the MRI is not back yet, but he is working on getting further outpatient evaluation and management for your symptoms and knows that you are being discharged today. Plan of Treatment: As above. Care Goals: Provement in symptoms and stabilization are the goals. Assessment: Patient understands and is agreeable with the plan. No Smoking: If you smoke, Please STOP! Call for help. Follow-up with: Kobe Rebolledo MD [Primary Care Provider] -
[2020-05-23] MEDS ORDERED: DEXTROSE 5%-0.9% NACL 1,000 ML IV SCH (08:00)
[2020-05-23] MEDS ORDERED: NEUTRA-PHOS 250 MG TABLET PO SCH (08:00)
--- NOTE | 2020-05-23 08:25 | XRAY Report ---
PROCEDURE: Chest 1 View X-Ray INDICATIONS: Chest pain. Cough. TECHNIQUE: One view of the chest was acquired. COMPARISON: Similar chest plain film 12/24/2015 FINDINGS: Surgical changes and devices: None. Lungs and pleura: No pleural effusions or pneumothorax. Lungs are clear. Mediastinum: Mediastinal contours appear normal. Heart size is normal. Bones and chest wall: No suspicious bony lesions. Overlying soft tissues appear unremarkable. IMPRESSION: Normal for age, source of current chest pain is not found. No source of cough is identif ied. Agree with preliminary interpretation. Reviewed by: Ruddy Washington MD on 05/23/2020 8:24 AM PDT Approved by: Ruddy Washington MD on 05/23/2020 8:24 AM PDT Station ID: [id number]
[2020-05-23] MEDS ORDERED: HEPARIN 5,000 UNIT/ML VIAL SUBQ SCH (09:00)
[2020-05-23] MEDS ORDERED: TAMSULOSIN 0.4 MG CAPSULE PO SCH (09:00)
--- NOTE | 2020-05-23 09:54 | Ultrasound Report ---
PROCEDURE: Abdomen Limited INDICATIONS: nausea, elev liver enz TECHNIQUE: Real-time focused scanning was performed of the abdomen, with image documentation. COMPARISON: Prior CT abdomen/pelvis 04/09/2020. FINDINGS: The liver is abnormally enlarged at [address] scanning and the current ultrasoun d scanning show evidence of prominent fatty infiltration within the liver parenchyma, with an unusual pattern of what appears to be sparing from otherwise diffuse fatty infiltration at the right posteri or hepatic segment. The ultrasound, however, shows several hypoechoic lesions within the liver parenc hyma that cannot be located on the recent prior CT scanning, for example located within the left hepa tic lobe a 2.1 x 1.7 x 2.3 cm hypoechoic structure is present without any corresponding abnormality i n early April of this year. Several additional nodular masses are seen by ultrasound without clear c orresponding abnormalities on prior CT scanning. No definite gallstones or sludge identified, gallbladder wall measures up to 4 mm in thickness, no fo mercedes tenderness during sonographic palpation, no adjacent pericholecystic free fluid. Note is made of what appears to be a relatively poorly seen cystic structure at the upper right renal cortex, which l ikely represents a cyst present in that area on CT scanning 04/09/2020. IMPRESSION: The patient reports 15 pound weight loss over last several months, unintentional. Reported nausea and elevated liver enzymes. The current examination shows an unusual pattern of liver parenchyma echogen icity with what appears to be diffuse fatty infiltration within the liver but sparing from this fatty infiltration pattern at the right posterior hepatic segment. A similar appearance was suggested by p rior CT scanning 04/09/2020. A worrisome finding, however, is the presence of what appears to be new hypoechoic lesions within the liver parenchyma the largest of which is located at the left hepatic lobe anteriorly, measuring up t o 2.4 cm in diameter. No lesion of this size or appearance can be located on the prior CT scanning fr om approximately 1.5 months ago. Given this globe changer time and continued weight loss it may be warranted to repeat the CT scan of th e abdomen/pelvis, duplicating prior technique. Reviewed by: Ruddy Washington MD on 05/23/2020 9:53 AM PDT Approved by: Ruddy Washington MD on 05/23/2020 9:53 AM PDT Station ID: [id number]
[2020-05-23] MEDS ORDERED: FINASTERIDE 5 MG TABLET PO SCH (10:00)
[2020-05-23] MEDS ORDERED: GADOBUTROL 10 MMOL/10 ML VIAL ONE (10:14)
[2020-05-23] MEDS ORDERED: GADOBUTROL 10 MMOL/10 ML VIAL IVP ONE (10:51)
--- NOTE | 2020-05-23 11:30 | PHARMACY PROGRESS NOTE ---
- Best Possible Medication History Admit Date and Time: 05/22/20 6810 Processed by: Nursing Medication History completed: Yes As the person ultimately responsible for medication therapy, providers are able to order a medication from an existing home medication list in [facility] via the "Reconcile Routine" prior to Confirmation of that medication by support representative. Such practice is discouraged except when the physician, in their clinical judgment, deems that a medical need exists for a medication without regard to previous use.
--- NOTE | 2020-05-23 16:25 | MRI Report ---
PROCEDURE: Abdomen W/WO INDICATIONS: Liver mass. CONTRAST: IV CONTRAST: Gadavist ml: 8 TECHNIQUE: Coronal ultra fast SE, axial 2D spoiled GE in- and [id number]; axial breath-hold T2 fast SE. Dynam ic axial ultra fast GE during the administration of contrast; post-contrast coronal ultra fast GE or 2D spoiled GE with fat saturation from the hepatic dome to the iliac crests. Optional diffusion weig hted imaging and ADC may be performed. COMPARISON: CT abdomen pelvis 04/09/2020, CT IVP 11/29/2017 . FINDINGS: Image quality: Diagnostic with motion artifact. Lung bases: There is posterior atelectasis within the lung bases. Heart size is mildly enlarged. Solid organs: Within the posterior right hepatic lobe involving the majority of segments 5 and 6, th ere is a large lobulated infiltrative mass. This demonstrates heterogeneous hypervascular enhancement on the arterial phase with washout on the portal venous and delayed phases. Scattered within the mas s with areas of confluence inferiorly, there are foci of intrinsic T1 hyperintensity most likely repr esenting blood product. In addition, there are multiple enhancing lesions demonstrated elsewhere thro ughout the right and left hepatic lobes with hypervascular enhancement on the arterial phase and rose pheral rim enhancement on portal venous and delayed phases. The findings are consistent with metastat ic disease. These include multiple lesions demonstrating internal foci of T1 hyperintensity consisten t with blood product and likely representing hemorrhagic metastases. Elsewhere in the liver, there is fatty infiltration primarily involving the left lobe with signal dropout on out of phase imaging. On the arterial phase, there are also areas of vascular shunting demonstrated throughout the liver. The gallbladder is partially distended with mild wall thickening but without gallstones. Biliary syst em is non dilated. Pancreas is normal in morphology without a discrete pancreatic mass identified. N o pancreatic duct dilatation. No adrenal nodules. The spleen is mildly enlarged, measuring up to 13 .8 cm. Multiple small foci of low signal are demonstrated throughout the spleen corresponding to calc ification seen on CT and consistent with sequelae of prior granulomas disease. Kidneys demonstrate no hydronephrosis. There are bilateral renal cysts. Nodes and vessels: No retroperitoneal or mesenteric adenopathy by size criteria. Aorta and inferior vena cava are normal in size. Bowel and peritoneum: Visualized bowel loops are normal in caliber. No free fluid. Bones and soft tissues: No ventral hernias. Bone marrow is normal in overall signal. IMPRESSION: 1. Confluent hypervascular mass involving the majority of the posterior right hepatic lobe with assoc iated washout is compatible with a malignancy such as hepatocellular carcinoma or metastatic disease. A cholangiocarcinoma is also in the differential but considered less likely in the absence of capsul ar retraction or delayed enhancement. Extensive areas of T1 hyperintensity are demonstrated within th e mass inferiorly consistent with blood product. 2. Numerous additional smaller enhancing mass lesions demonstrated throughout the right and left hepa tic lobes with peripheral enhancement on portal venous and delayed phases with likely representing me tastatic disease. These include multiple masses with internal hemorrhagic foci. Reviewed by: Jong Armendariz MD on 05/23/2020 4:24 PM PDT Approved by: Jong Armendariz MD on 05/23/2020 4:24 PM PDT Station ID: [id number]
[2020-05-23 16:52] VITALS: BP 113/64
--- NOTE | 2020-05-23 18:41 | DISCHARGE SUMMARY ---
Discharge Summary Admit Date: 05/22/20 Discharge Date: 05/23/20 Discharging Provider: Dr Anushka Alvarez Primary Care Provider: Dr Kobe Rebolledo Code Status: Do Not Attempt Resuscitation Condition at Discharge: Fair Discharge Disposition: 01 Home, Self Care - HPI History of Present Illness: The admission H&P of Dr. John Hayes: This is a very pleasant 85-year-old male with a past medical history significant for CKD stage III, type 2 diabetes mellitus, BPH, gout, history of retinal melanoma of the right eye who presents today to the emergency department complaining of nausea and weight loss for the past 3 weeks. He reports over this past period of time, he has had persistent nausea and poor appetite. This has caused him to lose 10 to 15 pounds over the past 3 weeks. He had been started on Reglan by his primary care provider for possible gastroparesis and is scheduled for gastric emptying study. 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 He had previously undergone a CT of the abdomen and pelvis on April 09 with IV contrast which noted an abnormal appearing liver with imaging most consistent with fatty liver although neoplasm could not be ruled out. Despite these interventions and work-up, he continued to lose weight and so he was brought to the emergency department today to ensure there is nothing acute that may be causing his symptoms. He states he has felt weaker over the past few weeks as well. He normally ambulates on his own and still quite active. He normally drives and still golfs and fishes but has just felt generally weak more recently. Although his appetite has been poor, he states he has been drinking some liquids although not as much as he should be. He states he is most definitely not drinking 8 glasses of water a day. He had been on hydrochlorothiazide but this was discontinued by his primary care provider a few days ago for concerns of dehydration. The patient does report feeling thirsty. He reports no fevers, chills, dysuria, urgency, frequency. He denies any hematuria or blood in his stool. He believes he may have had a colonoscopy in the past although he cannot recall. He does complain of pleuritic chest pain over the right lower chest wall that is most prominent with exhalation. This has been present for the past 7 to 10 days. Reports no dyspnea or cough. He is a non-smoker. He did report constipation a few weeks ago as well which was relieved by MiraLAX and one enema. He reports daily bowel movement since then which is mostly liquid. He reports a prior history of melanoma of the right eye which was diagnosed and treated over 10 years ago with laser therapy and a patch. He reports no other history of malignancy. He has not noticed any new or abnormal skin lesions recently. In the emergency department, he was found to be afebrile with temperature of 36.6 C. His heart rate was 95. His blood pressure is 138/78. He was not tachypneic and was saturating well on room air. Labs were significant for white count of 13.2. His calcium was elevated at 12.3. His creatinine was 1.6 and BUN was 45. His total bilirubin is also elevated at 5.2. His AST and ALT are elevated at 162 and 130 respectively. Alkaline phosphatase was elevated at 241. He underwent an ultrasound of the right upper quadrant which did not reveal any obvious obstruction per the preliminary report. Given the hypercalcemia, medicine was consulted for admission. I did discuss goals of care with the patient and he would like to be a DNR. - HOSPITAL COURSE Hospital Course: (1) Hypercalcemia Suspect this is likely multifactorial. His calcium was elevated at 12.3 and baseline appears to vary from 10-11. He fortunately, does not appear to be symptomatic. Suspect this may have been due to the hydrochlorothiazide he had been on as well as dehydration. This may also be to the potential underlying malignancy. His hydrochlorothiazide had been stopped a few days ago we continued to hold it. He received 1 L of normal saline in the emergency department and further saline maintenance IV fluids at 175 mL an hour. Th calcium corrected quickly, he did not need bisphosphonates started at this time. We ordered a PTH and PTH related protein and a vitamin D level, which were still pending at discharge. He was discharged the following day and told to not take HCTZ or his vitamin D and to have follow-up with Dr Rebolledo soon. (2) Liver mass, right lobe This is concerning for malignancy. His LFTs were elevated but prelim ultrasound report did not show evidence of obstruction. This mass is the likely cause of his nausea, poor appetite, weight loss. He underwent an MRI of the abdomen with and without contrast for further evaluation. Results were communicated by radiology to his PCP. The pt will need outpatient follow-up for potential biopsy. (3) Weight loss, abnormal He presented with poor appetite, weight loss, nausea. Suspect this is likely due to underlying suspected malignancy although this may also be due to hypercalcemia although this is felt less likely. He was rehydrated with IV fluids. We continued the Remeron that had been initiated on outpatient basis for his poor appetite. (4) Abnormal LFTs His LFTs and INR were elevated and suspect this is likely due to the mass rather than fatty infiltration although does have a history of mildly elevated LFTs but this is definitely elevated compared to baseline. Consider stopping the statin. (5) Pleuritic chest pain He reports right-sided pleuritic chest pain that is worse with exhalation. Suspect this may be due to the underlying mass. An EKG and troponins were not suggesting angina. (6) CKD (chronic kidney disease), stage III His renal function was stable and at baseline. (7) Galvez esophagus This was evident on EGD last month. There is no evidence of dysplasia. He was kept on oral Protonix during this hospitalization. (8) History of malignant melanoma of eye He reports a history of melanoma of the right eye that was treated over 10 years ago with laser therapy and a patch. (9) Type 2 diabetes mellitus He had previously been on Lantus but this was discontinued due to his weight lo ss and poor appetite. His last A1c was 6.8%. He was on a carb controlled diet and sliding scale Insulin coverage. (10) BPH (benign prostatic hyperplasia) We continued his home medications. 11) Weakness He reported marked weakness recently and appeared very tired and weak. There should be consideration for Home Health. - ALLERGIES Allergies/Adverse Reactions: Allergies Allergy/AdvReac Type Severity Reaction Status Date / Time No Known Drug Allergies Allergy Verified 05/22/20 19:47 - MEDICATIONS Home Medications: Ambulatory Orders Medication Instructions Recorded Confirmed Lovastatin 40 mg PO QPM 09/10/18 05/23/20 Pen Needle, Diabetic [Pen [place]] 1 each MC DAILY 09/10/18 05/22/20 Tamsulosin [Flomax] 0.4 mg PO BID 09/10/18 05/22/20 Esomeprazole Magnesium [Nexium] 20 mg PO DAILY 05/22/20 05/22/20 Metoclopramide HCl 5 mg PO TID 05/22/20 05/22/20 Mirtazapine 15 mg PO QPM 05/22/20 05/22/20 Finasteride [Proscar] 5 mg PO DAILY 05/23/20 05/23/20 Ondansetron Odt [Zofran Odt] 4 mg TL Q6HR PRN #10 tablet 05/23/20 oxyCODONE ER [OxyCONTIN] 10 mg PO Q12H PRN #8 tablet 05/23/20 - PHYSICAL EXAM AT DISCHARGE General Appearance: positive: No acute distress, Alert, Other (Appears weak and fatigued.) Eyes Bilateral: positive: Normal inspection, EOMI ENT: positive: ENT inspection nml, No signs of dehydration Neck: positive: Nml inspection, No JVD Respiratory: positive: No respiratory distress, Breath sounds nml Cardiovascular: positive: Regular rate & rhythm, No murmur Abdomen: positive: Non-tender, Nml bowel sounds, No distention Skin: positive: Color nml Extremities: positive: Non-tender, No pedal edema Neurologic/Psychiatric: positive: Oriented x3 (Non-focal.) - LABS Result Diagrams: 05/23/20 05:30 05/23/20 05:30 - DIAGNOSTIC IMAGING Diagnostic Imaging Results: Final report reviewed - FOLLOW UP Follow Up: See PCP soon in follow-up. - TIME SPENT Time Spent in Discharge (Minutes): 30
[2020-05-23] MEDS ORDERED: ATORVASTATIN 10 MG TABLET PO SCH (21:00)
== END 2020-05-23 17:00 | disposition home or self-care (01) ==
LOC: ED 19:13 → MS2 21:50
PROVIDERS: ADMIT Internal Medicine; ATTEND Internal Medicine
DX: E83.52 Hypercalcemia (principal); R16.0 Hepatomegaly, not elsewhere classified; R63.4 Abnormal weight loss; Z68.24 Body mass index [BMI] 24.0-24.9, adult; R11.0 Nausea; R79.89 Other specified abnormal findings of blood chemistry; R07.81 Pleurodynia; E11.22 Type 2 diabetes mellitus with diabetic chronic kidney disease; N18.3 Chronic kidney disease, stage 3 (moderate); K22.70 Barrett's esophagus without dysplasia; N40.0 Benign prostatic hyperplasia without lower urinary tract symptoms; M10.9 Gout, unspecified; H54.7 Unspecified visual loss; Z89.422 Acquired absence of other left toe(s); Z85.820 Personal history of malignant melanoma of skin; Z85.840 Personal history of malignant neoplasm of eye; Z79.899 Other long term (current) drug therapy
CPT/HCPCS: 36415; 71045; 74183; 76705; 80048; 80053; 80076; 81001; 82306; 83519; 83690; 83735; 83970; 84100; 84484; 85025; 85610; 93005; 96361; 96365; 96366; 96372; 96375; 99285; A9270; A9585; G0378

== ENCOUNTER 2020-05-27 14:40 | Outpatient (CLI) | payer MEDICARE, OTHER ==
[2020-05-27 18:44] LABS: BASOPHILS # (AUTO) 0.1 10^3/uL (0.0-0.1); BASOPHILS % (AUTO) 0.4 %; EOSINOPHILS # (AUTO) 0.1 10^3/uL (0.0-0.7); EOSINOPHILS % (AUTO) 0.8 %; HGB - HEMOGLOBIN 13.5 g/dL (14.0-18.0); LYMPHOCYTES # (AUTO) 2.3 10^3/uL (1.5-3.5); LYMPHOCYTES % (AUTO) 16.9 %; MEAN CORPUSCULAR HEMOGLOBIN 34.1 pg (27.0-31.0); MEAN CORPUSCULAR HGB CONC 34.4 g/dL (32.0-36.0); MEAN CORPUSCULAR VOLUME 99.2 fL (80.0-94.0); MEAN PLATELET VOLUME 10.2 fL (7.4-11.4); MONOCYTES % (AUTO) 7.3 %; NEUTROPHILS # (AUTO) 9.8 10^3/uL (1.5-6.6); NEUTROPHILS % (AUTO) 73.6 %; PLT - PLATELET COUNT 211 10^3/uL (130-450); RED BLOOD COUNT 3.96 10^6/uL (4.70-6.10); RED CELL DISTRIBUTION WIDTH 17.2 % (12.0-15.0); WHITE BLOOD COUNT 13.4 x10^3/uL (4.8-10.8)
[2020-05-27 18:51] LABS: PARTIAL THROMBOPLASTIN TIME 29.2 secs (24.9-33.3)
[2020-05-27 18:59] LABS: ALBUMIN 3.1 g/dL (3.2-5.5); ALBUMIN/GLOBULIN RATIO 0.8 (1.0-2.2); BILIRUBIN,TOTAL 8.4 mg/dL (0.2-1.0); CALCIUM 10.8 mg/dL (8.5-10.3); CREATININE 1.2 mg/dL (0.6-1.2)
[2020-05-27 19:10] LABS: INR 1.3 (0.8-1.2); PT - PROTHROMBIN TIME 14.1 secs (9.9-12.6)
== END 2020-05-27 23:59 | disposition home or self-care (01) ==
LOC: LAB.WCP 14:40
PROVIDERS: ATTEND Family Medicine
DX: R16.0 Hepatomegaly, not elsewhere classified (principal); R10.9 Unspecified abdominal pain
CPT/HCPCS: 36415; 80053; 85025; 85610; 85730

== ENCOUNTER 2020-06-02 14:56 | Outpatient (CLI) | payer MEDICARE, OTHER | END 2020-06-02 14:57 | disposition critical access hospital (66) | LOC: EMS 14:56 | PROVIDERS: ATTEND Surgery | DX: R53.1 Weakness (principal) | CPT/HCPCS: A0425; A0429 ==

== ENCOUNTER 2020-06-02 15:16 | Inpatient (IN) | payer MEDICARE, OTHER ==
--- NOTE | 2020-06-02 15:37 | ED Physician Documentation ---
History of Present Illness - Stated complaint Stated Complaint: WEAKNESS - Chief complaint Chief Complaint: General - History obtained from History obtained from: Family (/Son) - Additonal information Additional information: This is an 85 yo M who unfortunately has liver lesions consistent on recent MRI with likely metastatic disease. He presents today with increasing weakness and jaundice. As the patient could not provide any information, I spoke w/ pts son and POA who stated that pt is increasingly weak and he is having difficulty assisting him up. As of last week pt was ambulatory and able to participate in care. Last night pt was up all night long, getting out of bed every few minutes to go to the bathroom or due to confusion. He isn't eating. He isn't able to get up on his own and son must provide total assistance. Son is exhausted and is unable to care for him on her own. Son states they have additional family coming into help and have home hospice set up to evaluate patient tomorrow but need respite and want pt to evaluated for any reversible causes of his rapid downturn. They have not received the results of his recent abd MRI but are aware that his prognosis is poor and he is unlikely to be a surgical or oncologic treatment candidate. No known fever, cough or URI sx, cp, dyspnea, vomiting, diarrhea, or urinary sx. 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.) HEENT: Tonsil/Adenoidectomy - Present Medications Home Medications: Ambulatory Orders Medication Instructions Recorded Confirmed Lovastatin 40 mg PO QPM 09/10/18 05/23/20 Pen Needle, Diabetic [Pen [place]] 1 each MC DAILY 09/10/18 05/22/20 Tamsulosin [Flomax] 0.4 mg PO BID 09/10/18 05/22/20 Esomeprazole Magnesium [Nexium] 20 mg PO DAILY 05/22/20 05/22/20 Metoclopramide HCl 5 mg PO TID 05/22/20 05/22/20 Mirtazapine 15 mg PO QPM 05/22/20 05/22/20 Finasteride [Proscar] 5 mg PO DAILY 05/23/20 05/23/20 Ondansetron Odt [Zofran Odt] 4 mg TL Q6HR PRN #10 tablet 05/23/20 oxyCODONE ER [OxyCONTIN] 10 mg PO Q12H PRN #8 tablet 05/23/20 - Allergies Allergies/Adverse Reactions: Allergies Allergy/AdvReac Type Severity Reaction Status Date / Time No Known Drug Allergies Allergy Verified 06/02/20 15:23 - Social History Does the pt smoke?: No Smoking Status: Former smoker Does the pt drink ETOH?: Yes Does the pt have substance abuse?: No - Immunizations Immunizations are current?: Yes - POLST Patient has POLST: No PD ED PE NORMAL - Vitals Vital signs reviewed: Yes - General General: Other (sleeping, occasionally asks for water but does not participate in conversation) - HEENT HEENT: Other (icteric, mouth very dry) - Neck Neck: Supple, no meningeal sign - Cardiac Cardiac: RRR, No murmur, No gallop, No rub - Respiratory Respiratory: No respiratory distress, Clear bilaterally - Abdomen Abdomen: Normal bowel sounds, Other (protuberant but soft) - Derm Derm: Warm and dry, Other (jaundiced) - Extremities Extremities: No deformity, No tenderness to palpate, Normal ROM s pain, No edema, No calf tenderness / cord - Neuro Neuro: Normal speech Eye Opening: Spontaneous Motor: Obeys Commands Verbal: Confused GCS Score: 14 Results - Vitals Vitals: Vital Signs - 24 hr 06/02/20 06/02/20 06/02/20 15:23 15:56 16:26 Temperature 36.2 C L Heart Rate 78 69 77 Respiratory 16 18 13 Rate Blood Pressure 118/64 111/62 106/61 O2 Saturation 96 94 92 06/02/20 06/02/20 16:30 17:00 Temperature Heart Rate 81 66 Respiratory 24 13 Rate Blood Pressure 121/65 100/90 H O2 Saturation 92 99 Oxygen O2 Source Room air - Labs Labs: Laboratory Tests 06/02/20 06/02/20 06/02/20 15:39 15:39 15:39 WBC 12.5 H RBC 3.68 L Hgb 12.5 L Hct 36.5 L MCV 99.2 H MCH 34.0 H MCHC 34.2 RDW 20.8 H Plt Count 194 MPV 9.7 Neut # (Auto) 10.0 H Lymph # (Auto) 1.3 L Collier # (Auto) 1.0 Eos # (Auto) 0.0 Baso # (Auto) 0.0 Absolute Nucleated RBC 0.00 Nucleated RBC % 0.0 Manual Slide Review Indicated Platelet Estimate NORMAL (130-450,000) Platelet Morphology NORMAL APPEARANCE RBC Morph Micro Appear 1+ OVALOCYTES PT INR Sodium 137 Potassium 4.5 Chloride 101 Carbon Dioxide 21 Anion Gap 15.0 H BUN 55 H Creatinine 1.8 H Estimated GFR (MDRD) 36 L Glucose 113 H Calcium 11.8 H Total Bilirubin 13.4 H AST 372 H ALT 122 H Alkaline Phosphatase 233 H Ammonia Troponin I High Sens 16.3 Total Protein 6.9 Albumin 2.7 L Globulin 4.2 Albumin/Globulin Ratio 0.6 L Lipase 29 Urine Color Urine Clarity Urine pH Ur Specific [place] Urine Protein Urine Glucose (UA) Urine Ketones Urine Occult Blood Urine Nitrite Urine Bilirubin Urine Urobilinogen Ur Leukocyte Esterase Urine RBC Urine WBC Ur Squamous Epith Cells Urine Bacteria Ur Microscopic Review Urine Culture Comments 06/02/20 06/02/20 06/02/20 15:39 15:42 16:17 WBC RBC Hgb Hct MCV MCH MCHC RDW Plt Count MPV Neut # (Auto) Lymph # (Auto) Collier # (Auto) Eos # (Auto) Baso # (Auto) Absolute Nucleated RBC Nucleated RBC % Manual Slide Review Platelet Estimate Platelet Morphology RBC Morph Micro Appear PT 18.5 H INR 1.7 H Sodium Potassium Chloride Carbon Dioxide Anion Gap BUN Creatinine Estimated GFR (MDRD) Glucose Calcium Total Bilirubin AST ALT Alkaline Phosphatase Ammonia 52.9 H Troponin I High Sens Total Protein Albumin Globulin Albumin/Globulin Ratio Lipase Urine Color BROWN Urine Clarity HAZY Urine pH 5.0 Ur Specific [place] 1.025 Urine Protein TRACE Urine Glucose (UA) NEGATIVE Urine Ketones TRACE Urine Occult Blood NEGATIVE Urine Nitrite POSITIVE H Urine Bilirubin LARGE H Urine Urobilinogen 0.2 (NORMAL) Ur Leukocyte Esterase NEGATIVE Urine RBC 0-5 Urine WBC 0-3 Ur Squamous Epith Cells RARE Squamous Urine Bacteria Rare Ur Microscopic Review INDICATED Urine Culture Comments INDICATED PD MEDICAL DECISION MAKING - ED course Complexity details: reviewed old records, reviewed results, re-evaluated patient, considered differential, d/w patient, d/w family, d/w financial operations consultant ED course: This is an 85 yo M who unfortunately appears to likely have metastatic liver CA. He presented today with weakness, poor po intake, confusion, increased jaundice. He was found to have worsening liver function, dehydration, and a possible UTI. I discussed plans with son and who are both aware of the poor prognosis for Mr. Goodwin but would like respite tonight and to hydrate him and give him IV pain control. He has a home hospice evaluation scheduled tomorrow. He remains a DNR per discussion with and son. I discussed case w/ ED attending Dr. Angela and he felt pt suitable for obs admit which I did discuss w/ the hospitalist team who kindly has accepted Mr. Goodwin. We have given him IV hydration here as well as IV morphine and zofran as needed. Pt and family updated on plan. Departure - Departure Disposition: ED Place in Observation
[2020-06-02 15:49] LABS: BASOPHILS % (AUTO) 0.3 %; EOSINOPHILS % (AUTO) 0.2 %; HGB - HEMOGLOBIN 12.5 g/dL (14.0-18.0); LYMPHOCYTES # (AUTO) 1.3 10^3/uL (1.5-3.5); MEAN CORPUSCULAR HGB CONC 34.2 g/dL (32.0-36.0); MEAN CORPUSCULAR VOLUME 99.2 fL (80.0-94.0); MEAN PLATELET VOLUME 9.7 fL (7.4-11.4); MONOCYTES % (AUTO) 7.8 %; PLT - PLATELET COUNT 194 10^3/uL (130-450); RED BLOOD COUNT 3.68 10^6/uL (4.70-6.10); RED CELL DISTRIBUTION WIDTH 20.8 % (12.0-15.0); WHITE BLOOD COUNT 12.5 x10^3/uL (4.8-10.8)
[2020-06-02 16:12] LABS: INR 1.7 (0.8-1.2); PT - PROTHROMBIN TIME 18.5 secs (9.9-12.6)
[2020-06-02 16:17] LABS: PLATELET ESTIMATE, MANUAL NORMAL (130-450,000) (NORMAL); PLATELET MORPHOLOGY NORMAL APPEARANCE (NORMAL)
[2020-06-02 16:20] LABS: ALBUMIN 2.7 g/dL (3.2-5.5); ALBUMIN/GLOBULIN RATIO 0.6 (1.0-2.2); BILIRUBIN,TOTAL 13.4 mg/dL (0.2-1.0); CALCIUM 11.8 mg/dL (8.5-10.3); CREATININE 1.8 mg/dL (0.6-1.2); TOTAL PROTEIN 6.9 g/dL (6.7-8.2)
[2020-06-02 16:34] LABS: GLUCOSE, URINE (UA) NEGATIVE (NEGATIVE); KETONES,URINE (UA) TRACE mg/dL (NEGATIVE); LEUKOCYTE ESTERASE, URINE NEGATIVE (NEGATIVE); NITRITE,URINE POSITIVE (NEGATIVE); OCCULT BLOOD,URINE NEGATIVE (NEGATIVE); PROTEIN,URINE TRACE mg/dL (NEGATIVE); UROBILINOGEN,URINE 0.2 (NORMAL) E.U./dL (NORMAL)
[2020-06-02 16:37] LABS: BILIRUBIN,URINE LARGE (NEGATIVE); CLARITY,URINE HAZY (CLEAR); ICTOTEST,URINE POSITIVE
[2020-06-02 16:46] LABS: BACTERIA,URINE Rare /HPF (None Seen); RBC,URINE 0-5 /HPF (0-5); SQUAMOUS EPITHELIAL CELL,UR RARE Squamous (<= Few)
[2020-06-02] MEDS ORDERED: SODIUM CHLORIDE 0.9% 500 ML IV STA (16:57)
[2020-06-02] MEDS ORDERED: MORPHINE 2 MG/ML CARPUJECT IVP STA (17:38)
[2020-06-02] MEDS ORDERED: ONDANSETRON 4 MG/2 ML VIAL IVP STA (17:38)
[2020-06-02] MEDS: DEXTROSE 5%-0.9% NACL 1,000 ML IV SCH (18:52)
--- NOTE | 2020-06-02 19:34 | HISTORY & PHYSICAL EXAMINATION ---
Chief Complaint - Chief Complaint Chief Complaint: weakness History of Present Illness - Admitted From Admitted From:: [facility] ED - History Obtained From Records Reviewed: yes History obtained from: ED physician's note Exam Limitations: altered mental status - History of Present Illness HPI Comment/Other: The HPI below was obtained from the ED providers H&P because the patient is unable to provide a history currently. This is an 85 yo M who unfortunately has liver lesions consistent on recent MRI with likely metastatic disease. He presents today with increasing weakness and jaundice. As the patient could not provide any information, I spoke w/ pts son and POA who stated that pt is increasingly weak and he is having difficulty assisting him up. As of last week pt was ambulatory and able to participate in care. Last night pt was up all night long, getting out of bed every few minutes to go to the bathroom or due to confusion. He isn't eating. He isn't able to get up on his own and son must provide total assistance. Son is exhausted and is unable to care for him on her own. Son states they have additional family coming into help and have home hospice set up to evaluate patient tomorrow but need respite and want pt to evaluated for any reversible causes of his rapid downturn. They have not received the results of his recent abd MRI but are aware that his prognosis is poor and he is unlikely to be a surgical or oncologic treatment candidate. No known fever, cough or URI sx, cp, dyspnea, vomiting, diarrhea, or urinary sx. Patient was discharged from the hospital on May 23, 2020. At bedside patient appears very lethargic/sleepy. He opens his eyes to verbal stimuli but cannot answer questions or follow commands. History - Past Medical History Cardiovascular: reports: None Respiratory: reports: None Neuro: reports: None Endocrine/Autoimmune: reports: Type 2 diabetes GI: reports: Chronic constipation : reports: Benign prostate hypertrophy, Renal insuffiency HEENT: reports: Chronic vision loss Psych: reports: None Musculoskeletal: reports: Gout Derm: reports: None MRSA Hx?: Yes - Past Surgical History General: reports: Appendectomy Ortho: reports: Other HEENT: reports: Tonsil/Adenoidectomy - Family & Social History Family History Comment/Other: His sister from a brain malignancy in her 40s. He reports no other significant family history to his knowledge. Living arrangement: At home Living Situation: With spouse/s.o. Social History Notes: He lives at home with his . They have lived on [address] [place] over [place] years. 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 He reports smoking a few cigarettes here and there over 40 years ago. He does drink occasional alcohol but this intake has decreased over the past few weeks. - POLST Patient has POLST: No POLST Status: DNR Meds/Allgy - Home Medications Home Medications: Ambulatory Orders Medication Instructions Recorded Confirmed Tamsulosin [Flomax] 0.4 mg PO BID 09/10/18 05/22/20 Finasteride [Proscar] 5 mg PO DAILY 05/23/20 05/23/20 Ondansetron Odt [Zofran Odt] 4 mg TL Q6HR PRN #10 tablet 05/23/20 oxyCODONE ER [OxyCONTIN] 10 mg PO Q12H PRN #8 tablet 05/23/20 Allopurinol [Zyloprim] 300 mg PO DAILY 06/03/20 Aspirin [Aspirin EC] 81 mg PO BID 06/03/20 Ergocalciferol [Vitamin D2] 2 cap PO DAILY 06/03/20 Esomeprazole Magnesium [Nexium 20 mg PO DAILY 06/03/20 24Hr] Haloperidol Oral Soln [Haldol Oral 1 mg PO Q6H #15 ml 06/03/20 Soln] Insulin Glargine,Hum.rec.anlog 30 units SUBQ DAILY 06/03/20 [Basaglar Kwikpen U-100] Lovastatin 40 mg PO DAILY 06/03/20 Metoclopramide HCl 5 mg PO DAILY 06/03/20 Mirtazapine [Remeron] 15 mg PO QPM 06/03/20 hydroCHLOROthiazide 25 mg PO DAILY 06/03/20 [Hydrochlorothiazide] - Allergies Allergies/Adverse Reactions: Allergies Allergy/AdvReac Type Severity Reaction Status Date / Time No Known Drug Allergies Allergy Verified 06/02/20 15:23 Review of Systems - Other Findings Other Findings: 12 point review of system is limited because of altered mental status Prior Level of Functionality: Patient has become increasingly weak and requiring total assistance. As of last week the patient was ambulatory and able to assist with his care. Exam - Vital Signs Vital Signs: Vital Signs x48h Temp Pulse Pulse Resp BP BP Pulse Ox 06/02/20 18:35 36.3 C L 74 16 122/53 L 96 06/02/20 18:16 69 11 L 116/69 96 06/02/20 18:03 74 12 120/60 96 06/02/20 17:00 66 13 100/90 H 99 06/02/20 16:30 81 24 121/65 92 06/02/20 16:26 77 13 106/61 92 06/02/20 15:56 69 18 111/62 94 06/02/20 15:23 36.2 C L 78 16 118/64 96 - Physical Exam General Appearance: positive: No acute distress, Lethargic Eyes Bilateral: positive: PERRL, EOMI ENT: positive: Dry mucous membranes Neck: positive: No JVD, Trachea midline Respiratory: positive: Chest non-tender, No respiratory distress, Breath sounds nml. negative: Wheezes, Rales, Rhonchi Cardiovascular: positive: Regular rate & rhythm Abdomen: positive: Non-tender, Nml bowel sounds, No distention Back: positive: Nml inspection Skin: positive: Color nml, Other Extremities: positive: Nml appearance, No pedal edema Neurologic/Psychiatric: negative: Oriented x3 Conclusion/Plan - Problem List (1) Weakness Conclusion/Plan: Likely multifactorial. Patient recently had an abdominal MRI which showed hepatic malignancy suspicious of hepatocellular carcinoma or metastatic disease. Patient has an ammonia level of 52. Patient's creatinine was 1.8. Patient's oral intake has been poor. We will administer lactulose p.o. twice daily Patient receiving IV hydration with dextrose 5 and half-normal saline Will discuss with family in the am about plan of care regarding his malignancy (2) Liver mass, right lobe Conclusion/Plan: Likely due to hepatocellular carcinoma or metastatic disease. Will discuss plan/ direction of care with family in the morning. (3) Acute kidney failure Conclusion/Plan: Acute on chronic kidney disease stage III. Creatinine is 1.8 today Patient started on IV hydration. Qualifiers: Acute renal failure type: unspecified Qualified Code(s): N17.9 - Acute kidney failure, unspecified (4) Abnormal LFTs Conclusion/Plan: Likely related to liver malignancy. Will discuss direction/plan of care with regards to the malignancy tomorrow with family. Will monitor. - Lab Results Fish Bones: 06/03/20 04:55 06/03/20 04:55 Core Measures - Anticipated LOS I expect patient to be DC'd or transferred within 96 hours.: Yes - DVT/VTE - Prophylaxis VTE/DVT Device ordered at admit?: Yes VTE/DVT Prophylaxis med ordered at admit?: Yes
[2020-06-02] MEDS ORDERED: oxyCODONE 5 MG TABLET PO PRN (21:02)
[2020-06-02] MEDS ORDERED: ONDANSETRON 4 MG/2 ML VIAL IVP PRN (21:02)
[2020-06-02] MEDS ORDERED: SODIUM CHLORIDE FLUSH 0.9% 10 ML SYRINGE IVP PRN (21:02)
[2020-06-02] MEDS: LACTULOSE 10 GM /15 ML UDC PO SCH (21:50)
[2020-06-02] MEDS: NYSTATIN POWDER 15 GM TOP SCH (21:50)
[2020-06-03] MEDS: SODIUM CHLORIDE FLUSH 0.9% 10 ML SYRINGE IVP SCH ×2 (00:08→09:10)
[2020-06-03] MEDS: MORPHINE 2 MG/ML CARPUJECT IVP PRN ×6 (00:37→15:32)
[2020-06-03] MEDS ORDERED: MIN OIL/DIMETHICON/COCONUT OIL 92 GM TUBE TOP PRN (02:36)
[2020-06-03 05:12] LABS: BASOPHILS % (AUTO) 0.3 %; EOSINOPHILS % (AUTO) 0.4 %; HGB - HEMOGLOBIN 11.7 g/dL (14.0-18.0); LYMPHOCYTES # (AUTO) 1.1 10^3/uL (1.5-3.5); LYMPHOCYTES % (AUTO) 9.9 %; MEAN CORPUSCULAR HEMOGLOBIN 33.9 pg (27.0-31.0); MEAN CORPUSCULAR VOLUME 99.7 fL (80.0-94.0); MEAN PLATELET VOLUME 9.3 fL (7.4-11.4); MONOCYTES # (AUTO) 1.2 10^3/uL (0.0-1.0); MONOCYTES % (AUTO) 10.4 %; NEUTROPHILS # (AUTO) 8.7 10^3/uL (1.5-6.6); NEUTROPHILS % (AUTO) 77.2 %; PLT - PLATELET COUNT 179 10^3/uL (130-450); RED BLOOD COUNT 3.45 10^6/uL (4.70-6.10); RED CELL DISTRIBUTION WIDTH 21.3 % (12.0-15.0); WHITE BLOOD COUNT 11.2 x10^3/uL (4.8-10.8)
[2020-06-03 05:28] LABS: ALBUMIN 2.5 g/dL (3.2-5.5); ALBUMIN/GLOBULIN RATIO 0.6 (1.0-2.2); BILIRUBIN,TOTAL 13.1 mg/dL (0.2-1.0); CALCIUM 11.4 mg/dL (8.5-10.3); CREATININE 1.5 mg/dL (0.6-1.2); TOTAL PROTEIN 6.4 g/dL (6.7-8.2)
[2020-06-03 05:50] LABS: PLATELET ESTIMATE, MANUAL NORMAL (130-450,000) (NORMAL); PLATELET MORPHOLOGY NORMAL APPEARANCE (NORMAL)
[2020-06-03] MEDS: DEXTROSE 5%-0.9% NACL 1,000 ML IV SCH (06:30)
[2020-06-03] MEDS ORDERED: PANTOPRAZOLE 40 MG TABLET PO SCH (07:00)
[2020-06-03 08:39] VITALS: BP 115/64
[2020-06-03] MEDS ORDERED: ENOXAPARIN 40 MG/0.4 ML SYRINGE SUBQ SCH (09:00)
[2020-06-03] MEDS: NYSTATIN POWDER 15 GM TOP SCH (09:10)
[2020-06-03] MEDS: LACTULOSE 10 GM /15 ML UDC PO SCH (09:11)
[2020-06-03] MEDS ORDERED: LACTULOSE 10 GM/15 ML BOTTLE PR SCH (11:00)
--- NOTE | 2020-06-03 11:03 | Discharge Plan ---
Discharge Plan Problem Reviewed?: Yes Disposition: 50 Hospice/Home DC/Xfer Condition: Poor Prescriptions: LORazepam [Ativan] 0.5 mg PO Q6H PRN #10 tablet PRN Reason: Anxiety Haloperidol Oral Soln [Haldol Oral Soln] 1 mg PO Q6H #15 ml Morphine Sulfate [Morphine Sulf Oral (Roxanol)] 5 mg PO Q4H PRN #30 ml PRN Reason: Pain/Dyspnea Diet: Soft Activity Restrictions: Activity as Tolerated Health Concerns: Patient admitted with dehydration, ODILIA, worsening liver labs and recent diagnosis of liver masses/malignancy, worsening bilirubin, weakness, new altered mental status and possible UTI. He got IV hydration and lactulose for the high ammonia level. He is confused and no longer eating. Hospice evaluated him and has accepted the patient under their care, and he is being discharged for End-of Life, Comfort care and Family support. Plan of Treatment: As above. New medications for comfort care were sent to his [facility] pharmacy. A new Roca catheter will be inserted and he will go home with this. Care Goals: Comfort care and End-of-Life Care. Assessment: I discussed the above with son Ryan, the DPOA and Ryan's by phone, prior to discharge. No Smoking: If you smoke, Please STOP! Call for help. Follow-up with: Riky Rocha MD [Provider Admit Priv/Credential] -
[2020-06-03] MEDS ORDERED: LORazepam 0.5 MG TABLET SL PRN (11:22)
--- NOTE | 2020-06-03 11:27 | DISCHARGE SUMMARY ---
Discharge Summary Admit Date: 06/02/20 Discharge Date: 06/03/20 Discharging Provider: Dr Anushka Alvarez Primary Care Provider: Dr Kobe Rebolledo Code Status: Do Not Attempt Resuscitation Condition at Discharge: Poor Discharge Disposition: 50 Hospice/Home DC/Xfer - HPI History of Present Illness: From the admission H&P of Dr Farshad Rivera: The HPI below was obtained from the ED providers H&P because the patient is unable to provide any history currently. This is an 85 yo WM who has liver lesions with recent MRI findings of likely liver cancer vs liver metastatic disease. He presents today with increasing weakness and jaundice. As the patient could not provide any information, the patient's son who is the POA stated that pt is increasingly weak and the son is having difficulty assisting him up. As of last week pt was ambulatory and able to participate in care. Last night pt was up all night long, getting out of bed every few minutes to go to the bathroom or due to confusion. He isn't eating. He isn't able to get up on his own and son must provide total assistance. Son is exhausted and is unable to care for him on her own. Son states they have additional family coming into help and have home hospice set up to evaluate patient tomorrow but need respite and want pt to evaluated for any reversible causes of his rapid downturn. They have not received the results of his recent abd MRI but are aware that his prognosis is poor and he is unlikely to be a surgical or oncologic treatment candidate. No known fever, cough or URI sx, cp, dyspnea, vomiting, diarrhea, or urinary sx. Patient was discharged from the hospital on May 23, 2020. At bedside patient appears very lethargic/sleepy. He opens his eyes to verbal stimuli but cannot answer questions or follow commands. - HOSPITAL COURSE Hospital Course: (1) Weakness Likely multifactorial: dehydration, uremia, elevated ammonia level, liver malignancy rapidly progressive and poss UTI. A urine culture was sent and still pending. He was started on iv fluids and pureed food. Patient's oral intake was poor. Lactulose was ordered p.o. then changed to per rectum. (2) Liver mass, right lobe The patient did point to his epigastrium when complaining of pain, which is likely due to the hepatocellular carcinoma or metastatic liver disease. There was plan for a Hospice evaluation, but Hospice was actually ready to accept him the following day. I spoke to the who was herself confused, then to the son, ARNULFO Davis by phone and was told that the cancer was deemed to be te rminal and that the family was hopeful to have him in Hospice care. He was therefore ordered to get a Roca and Roxinol and Ativan here administered here, and he was discharged with meds for comfort care. (3) Acute kidney failure The elevated creat was acute on chronic kidney disease stage III. The iv fluids had been started, but he was discharged with plan for End-of-Life care. (4) Abnormal LFTs Bilirubin was 13, up from 5 just 10 days ago, during the previous hospitalization. INR was 1.7 and LFTs were abnormal. This was related to the li ashley malignancy and aside from a dose of Lactulose, no further management was undertaken. (5) DM Comfort care regular, pureed diet was ordered. - ALLERGIES Allergies/Adverse Reactions: Allergies Allergy/AdvReac Type Severity Reaction Status Date / Time No Known Drug Allergies Allergy Verified 06/02/20 15:23 - MEDICATIONS Home Medications: Ambulatory Orders Medication Instructions Recorded Confirmed Tamsulosin [Flomax] 0.4 mg PO BID 09/10/18 05/22/20 Finasteride [Proscar] 5 mg PO DAILY 05/23/20 05/23/20 Ondansetron Odt [Zofran Odt] 4 mg TL Q6HR PRN #10 tablet 05/23/20 oxyCODONE ER [OxyCONTIN] 10 mg PO Q12H PRN #8 tablet 05/23/20 Allopurinol [Zyloprim] 300 mg PO DAILY 06/03/20 Aspirin [Aspirin EC] 81 mg PO BID 06/03/20 Ergocalciferol [Vitamin D2] 2 cap PO DAILY 06/03/20 Esomeprazole Magnesium [Nexium 20 mg PO DAILY 06/03/20 24Hr] Haloperidol Oral Soln [Haldol Oral 1 mg PO Q6H #15 ml 06/03/20 Soln] Insulin Glargine,Hum.rec.anlog 30 units SUBQ DAILY 06/03/20 [Basaglar Kwikpen U-100] Lovastatin 40 mg PO DAILY 06/03/20 Metoclopramide HCl 5 mg PO DAILY 06/03/20 Mirtazapine [Remeron] 15 mg PO QPM 06/03/20 hydroCHLOROthiazide 25 mg PO DAILY 06/03/20 [Hydrochlorothiazide] - PHYSICAL EXAM AT DISCHARGE General Appearance: positive: No acute distress (Somnolent and appeared comfortable after receiving IV morphine) Eyes Bilateral: positive: Other (Jaundiced) ENT: positive: ENT inspection nml, Dry mucous membranes Neck: positive: No JVD Respiratory: positive: No respiratory distress Cardiovascular: positive: Regular rate & rhythm, No murmur Abdomen: positive: Non-tender, No distention Skin: positive: Warm, Dry, Other (Jaundiced) Extremities: positive: No pedal edema Neurologic/Psychiatric: positive: Disoriented to person, Disoriented to place, Disoriented to time - LABS Result Diagrams: 06/03/20 04:55 06/03/20 04:55 - DIAGNOSTIC IMAGING Diagnostic Imaging Results: Final report reviewed - TIME SPENT Time Spent in Discharge (Minutes): 30
[2020-06-03] MEDS ORDERED: INSULIN REGULAR HUMAN 300 UNIT/3 ML VIAL SUBQ SCH (12:00)
[2020-06-03 12:04] LABS: HEMOGLOBIN A1c% 5.1 % (4.27-6.07)
[2020-06-03] MEDS ORDERED: LIDOCAINE 2% URO-JET 5 ML SYRINGE UR SCH (12:28)
[2020-06-03] MEDS ORDERED: fentaNYL 25 MCG PATCH TOP SCH (13:00)
== END 2020-06-03 16:00 | disposition hospice, home (50) | DRG 641 ==
LOC: EDBD → EDUNIT# → ED 15:16 → MS2 17:45 → OBSVTOIN 21:02
PROVIDERS: ADMIT Internal Medicine; ATTEND Internal Medicine
DX: E86.0 Dehydration (principal); K76.89 Other specified diseases of liver; E11.9 Type 2 diabetes mellitus without complications; N17.9 Acute kidney failure, unspecified; N28.9 Disorder of kidney and ureter, unspecified; K59.09 Other constipation; C22.9 Malignant neoplasm of liver, not specified as primary or secondary; R17 Unspecified jaundice; R41.82 Altered mental status, unspecified; R53.1 Weakness; N40.0 Benign prostatic hyperplasia without lower urinary tract symptoms; Z66 Do not resuscitate; E11.22 Type 2 diabetes mellitus with diabetic chronic kidney disease; N18.3 Chronic kidney disease, stage 3 (moderate); Z87.891 Personal history of nicotine dependence
CPT/HCPCS: 36415; 80053; 81001; 82140; 83036; 83690; 84484; 85025; 85610; 87086; 96361; 96365; 96366; 96375; 99285; A6250; A9270; G0378; J1650; 81003

== ENCOUNTER 2020-06-03 15:41 | Outpatient (CLI) | payer MEDICARE, OTHER | END 2020-06-03 15:42 | disposition home or self-care (01) | LOC: EMS 15:41 | PROVIDERS: ATTEND Surgery | DX: Z51.5 Encounter for palliative care (principal) | CPT/HCPCS: A0425; A0428 ==